=== PATIENT | female | born 1990 | race Caucasian/White ===

== ENCOUNTER 2019-02-23 10:18 | Inpatient (IN) | payer OTHER ==
[~2019-02-23] VITALS: Ht 157.5 cm; Wt 54.7 kg
--- NOTE | 2019-02-23 11:00 | NUR ---
ua sent placed on nibp/pox right ac 20ga piv placed
[2019-02-23 11:17] LABS: MICROSCOPIC AUTO
[2019-02-23 11:20] LABS: CULTURE INDICATED? YES
[2019-02-23] MEDS ORDERED: ACETAMINOPHEN 500 MG TABLET PO ONE (11:30)
[2019-02-23] MEDS ORDERED: KETOROLAC 30 MG/1 ML IVPush ONE (11:30)
[2019-02-23] MEDS ORDERED: SODIUM CHLORIDE 0.9% 1,000ML IVBOLUS ONE ×2 (11:30→13:00)
[2019-02-23] MEDS ORDERED: CEFTRIAXONE PMX 1GM/50ML 50 ML IV ONE (11:30)
[2019-02-23] MEDS ORDERED: ACETAMINOPHEN 500 MG TABLET ONE (11:36)
[2019-02-23] MEDS ORDERED: CEFTRIAXONE PMX 1GM/50ML 50 ML ONE (11:36)
[2019-02-23] MEDS ORDERED: KETOROLAC 30 MG/1 ML ONE (11:36)
--- NOTE | 2019-02-23 11:41 | NUR ---
MEDICATED PER EMAR WITH APAP/TORADOL/NS IVF (NO ABX YET LAB HAS NOT BEEN BY TO GET BLOOD CULTURES.) REAL ESTATE MANAGEMENT SPECIALIST WILL COMPLETED THEN ADMIN ABX
--- NOTE | 2019-02-23 12:04 | NUR ---
FULL SET OF LABS INCLUDING LACTATE AND BLOOD CULTURES OBTAINED IN STERILE FASHION ABX THEN STARTED
[2019-02-23 12:10] LABS: MEAN CORPUSCULAR HEMOGLOBIN 30.6 pg (27.0-34.8); MEAN CORPUSCULAR HGB CONC 33.1 g/dL (32.4-35.8); MEAN CORPUSCULAR VOLUME 92.3 fL (80-100); MEAN PLATELET VOLUME 7.8 fL (7.4-10.4); PLATELET COUNT 257 x10^3/uL (130-400); RED BLOOD COUNT 4.26 x10^6/uL (3.82-5.3); RED CELL DISTRIBUTION WIDTH 12.3 % (9.6-15.2)
[2019-02-23 12:22] LABS: ALBUMIN 3.6 g/dL (3.4-5.0); ANION GAP 10 mmol/L (5-15); CALCIUM 8.7 mg/dL (8.5-10.1); CHLORIDE 108 mmol/L (98-107)
[2019-02-23 12:26] LABS: ALANINE AMINOTRANSFERASE 22 U/L (12-78); ALKALINE PHOSPHATASE 60 U/L (45-117); BILIRUBIN,TOTAL 0.8 mg/dL (0.2-1.0); TOTAL PROTEIN 7.7 g/dL (6.4-8.2)
[2019-02-23 12:30] LABS: RAPID INFLUENZA A Negative (Negative); RAPID INFLUENZA B Negative (Negative)
[2019-02-23 12:42] LABS: BASOPHILS # (AUTO) 0.06 x10^3/uL (0-0.1); BASOPHILS % (AUTO) 0 % (0-1); EOSINOPHILS # (AUTO) 0.01 x10^3/uL (0-0.4); EOSINOPHILS % (AUTO) 0 % (1-7); LYMPHOCYTES # (AUTO) 2.72 x10^3/uL (1-3.4); LYMPHOCYTES % (AUTO) 17 % (22-44); MD SCAN; MONOCYTES # (AUTO) 2.02 x10^3/uL (0.2-0.8); MONOCYTES % (AUTO) 13 % (2-9); NEUTROPHILS # (AUTO) 10.83 x10^3/uL (1.8-6.8); NEUTROPHILS % (AUTO) 69 % (42-75)
--- NOTE | 2019-02-23 13:02 | NUR ---
1L ns complete. After discussion with provider 2nd liter ns to be HELD (not to be administered) With reassessment report pain completely improved. tolerating po fluids/solids Provider to bedside to admit for pylo
[2019-02-23] MEDS ORDERED: ACETAMINOPHEN 325 MG TABLET PO PRN (14:00)
[2019-02-23] MEDS ORDERED: ONDANSETRON 2MG/ML, 2ML IVPush PRN (14:00)
[2019-02-23] MEDS ORDERED: BACLOFEN 10 MG TABLET PO PRN (14:00)
[2019-02-23] MEDS ORDERED: morphine SULFATE 10 MG/ML, 1ML IVPush PRN (14:00)
[2019-02-23] MEDS ORDERED: HYDROcodone/APAP 5/325 TABLET PO PRN (14:00)
[2019-02-23] MEDS ORDERED: ONDANSETRON ODT 4 MG PO PRN (14:00)
[2019-02-23] MEDS ORDERED: hydrALAzine 20 MG/ML, 1ML IVPush PRN (14:00)
[2019-02-23] MEDS ORDERED: IBUPROFEN 600 MG TABLET PO PRN (14:00)
[2019-02-23] MEDS: NS + 20MEQ KCL 1,000 ML IV SCH ×2 (14:49→22:25)
[2019-02-23] MEDS: LEVOFLOXACIN/PMX 750MG/150ML 150 ML IV SCH (14:49)
[2019-02-23 18:50] VITALS: BP 99/66
[2019-02-23] MEDS: KETOROLAC 30 MG/1 ML IV PRN (19:35)
[2019-02-24 01:15] VITALS: BP 121/71
[2019-02-24 05:42] LABS: MEAN CORPUSCULAR HEMOGLOBIN 30.2 pg (27.0-34.8); MEAN CORPUSCULAR HGB CONC 32.7 g/dL (32.4-35.8); MEAN CORPUSCULAR VOLUME 92.3 fL (80-100); MEAN PLATELET VOLUME 7.6 fL (7.4-10.4); PLATELET COUNT 237 x10^3/uL (130-400); RED BLOOD COUNT 3.87 x10^6/uL (3.82-5.3); RED CELL DISTRIBUTION WIDTH 12.6 % (9.6-15.2)
[2019-02-24 05:57] LABS: ANION GAP 7 mmol/L (5-15); CHLORIDE 112 mmol/L (98-107)
[2019-02-24 06:00] LABS: CREATININE 0.51 mg/dL (0.55-1.02)
[2019-02-24] MEDS: NS + 20MEQ KCL 1,000 ML IV SCH ×2 (06:38→17:38)
[2019-02-24 06:45] LABS: BASOPHILS # (AUTO) 0.03 x10^3/uL (0-0.1); BASOPHILS % (AUTO) 0 % (0-1); EOSINOPHILS # (AUTO) 0.04 x10^3/uL (0-0.4); EOSINOPHILS % (AUTO) 0 % (1-7); LYMPHOCYTES # (AUTO) 1.85 x10^3/uL (1-3.4); LYMPHOCYTES % (AUTO) 18 % (22-44); MD SCAN; MONOCYTES # (AUTO) 1.47 x10^3/uL (0.2-0.8); MONOCYTES % (AUTO) 15 % (2-9); NEUTROPHILS # (AUTO) 6.74 x10^3/uL (1.8-6.8); NEUTROPHILS % (AUTO) 67 % (42-75)
[2019-02-24] MEDS: KETOROLAC 30 MG/1 ML IV PRN ×2 (09:46→20:33)
[2019-02-24 11:01] VITALS: BP 96/58
[2019-02-24 14:21] VITALS: BP 101/64
[2019-02-24] MEDS: LEVOFLOXACIN/PMX 750MG/150ML 150 ML IV SCH (15:01)
[2019-02-24 19:26] VITALS: BP 110/69
[2019-02-25 00:55] VITALS: BP 111/73
[2019-02-25] MEDS: NS + 20MEQ KCL 1,000 ML IV SCH ×3 (02:02→21:14)
[2019-02-25 09:23] VITALS: BP 110/66
[2019-02-25 12:40] VITALS: BP 113/74
[2019-02-25] MEDS: LEVOFLOXACIN/PMX 750MG/150ML 150 ML IV SCH (15:27)
[2019-02-25 20:46] VITALS: BP 109/66
[2019-02-26] MEDS: KETOROLAC 30 MG/1 ML IV PRN (01:32)
[2019-02-26 03:40] VITALS: BP 99/63
[2019-02-26] MEDS: NS + 20MEQ KCL 1,000 ML IV SCH (05:26)
[2019-02-26 07:33] VITALS: BP 94/60
[2019-02-26] MEDS ORDERED: ONDA4TAB13 PO (08:38)
[2019-02-26] MEDS ORDERED: ACET325T26 PO (08:38)
[2019-02-26] MEDS ORDERED: IBUP-1222 PO (08:38)
[2019-02-26] MEDS ORDERED: LEVO750T26 PO (08:38)
== END 2019-02-26 10:16 | disposition home or self-care (01) | DRG 872 ==
LOC: ED 13:00 → EDIP 13:01 → ED 13:12 → 3N 14:14 → DCLOUNGE 02-26 10:12
PROVIDERS: ADMIT Internal Medicine; ATTEND Internal Medicine
DX: A41.9 Sepsis, unspecified organism (principal); N10 Acute pyelonephritis; Z16.11 Resistance to penicillins; F12.90 Cannabis use, unspecified, uncomplicated; G47.00 Insomnia, unspecified; Z87.891 Personal history of nicotine dependence
CPT/HCPCS: 36415; 74018; 76770; 80048; 80053; 81001; 83605; 85025; 87040; 87086; 87186; 87400; 93005; 96365; G0378; J0696; J1885; J1956; J3480; J7030

== ENCOUNTER → 2019-08-31 | Outpatient (CLI) | payer OTHER ==
[~2019-08-31] MED LIST: ACET325T26 PO; IBUP-1222 PO; LEVO750T26 PO; ONDA4TAB13 PO
== END | disposition home or self-care (01) ==
LOC: RAD 17:02
PROVIDERS: ATTEND Nurse Practitioner
DX: M25.475 Effusion, left foot (principal); M77.52 Other enthesopathy of left foot and ankle

== ENCOUNTER 2020-01-24 18:19 | Emergency (ER) | payer SELFPAY ==
[~2020-01-24] VITALS: Ht 157.5 cm; Wt 50.6 kg
[2020-01-24 18:33] VITALS: BP 115/70
== END 2020-01-24 21:14 ==
LOC: ED 20:40
DX: S20.211A Contusion of right front wall of thorax, initial encounter (principal); F17.210 Nicotine dependence, cigarettes, uncomplicated; W18.30XA Fall on same level, unspecified, initial encounter; Y93.89 Activity, other specified; Y92.89 Other specified places as the place of occurrence of the external cause; Y99.8 Other external cause status
CPT/HCPCS: 99283; 99406